=== PATIENT | female | born 1955 | race Caucasian/White ===

== ENCOUNTER 2021-10-11 13:24 | Outpatient (CLI) | payer MEDICARE, OTHER, SELFPAY ==
--- NOTE | ~2021-10-11 | CT_ITS ---
EXAMINATION: CT brain wo/w con DATE: 10/11/2021 14:25 INDICATION: Severe headache TECHNIQUE: Computed tomography (CT) of the head was performed without and subsequently with 100 CC Om nipaque 350 intravenous contrast. The mA was adjusted according to patient size. Iterative reconstruc tion technique was employed. Exam dose: 1210.67 mGy-cm total exam DLP. COMPARISON: None FINDINGS: No intracranial mass lesion or hemorrhage or cerebrovascular accident. No midline shift or mass effect. Normal ventricular size. No subdural or epidural hematoma. There is mild soft tissue thickening as well as some calcification within the sphenoid sinus. There i s minimal posterior mucoperiosteal thickening of the left sphenoid sinus. The included paranasal sinu ses and the mastoid air cells otherwise appear normally developed and aerated. No fracture or bone destruction of the cranial vault. Rounded 7 mm hyperdense lesion within the subcutaneous tissues of the scalp high over the right front al convexity, likely a sebaceous cyst. IMPRESSION: No significant intracranial abnormality Chronic soft tissue thickening and calcification of right sphenoid sinus, minimal mucoperiosteal thic kening of left sphenoid sinus Probable high anterior right frontal scalp sebaceous cyst Reviewed, dictated and finalized at [facility]. Reviewed, dictated and finalized at [facility]. IMPRESSION: No significant intracranial abnormality Chronic soft tissue thickening and calcification of right sphenoid sinus, minim al mucoperiosteal thickening of left sphenoid sinus Probable high anterior right frontal scalp sebaceous cyst
[2021-10-11 14:20] LABS: Estimated Glomerular Filt Rate > 60
== END 2021-10-11 13:25 | disposition home or self-care (01) ==
PROVIDERS: PCP Internal Medicine Gastroenterology; Visit Provider Internal Medicine Gastroenterology
DX: R51.9 Headache, unspecified (principal)
CPT/HCPCS: 70470; Q9967

== ENCOUNTER 2021-12-14 09:59 | Outpatient (CLI) | payer MEDICARE, OTHER, SELFPAY ==
[2021-12-14 10:31] LABS: Basophils Percent Auto 0.6 % (0.2-1.2); Eosinophils Absolute Auto 0.1 K/mm3 (0-0.3); Eosinophils Percent Auto 1.7 % (0-4.4); Hematocrit 40.6 % (37.0-47.0); Hemoglobin 14.1 g/dL (12.0-15.0); Immature Granulocyte Absolute 0.02 K/mm3 (0.00-0.031); Immature Granulocyte Percent A 0.4 % (0-0.5); Lymphocytes Absolute Auto 2.07 K/mm3 (0.9-3.2); Lymphocytes Percent Auto 39.5 % (18.3-44.2); Mean Corpuscular HGB Conc 34.7 g/dl (32-36); Mean Corpuscular Hemoglobin 32.4 pg (26-34); Mean Corpuscular Volume 93.3 fl (80-100); Mean Platelet Volume 9.9 fl (7.4-10.4); Monocytes Absolute Auto 0.5 K/mm3 (0.1-0.6); Monocytes Percent Auto 9.9 % (2.6-8.5); Neutrophils Absolute Auto 2.5 K/mm3 (1.3-6.7); Neutrophils Percent Auto 47.9 % (45.5-73.1); Platelet Count Result 205 k/mm3 (150-375); Red Blood Count 4.35 M/mm3 (4.2-5.4); Red Cell Distribution Width 12.2 % (11.5-14.5); White Blood Count 5.2 K/mm3 (4.5-10.0)
[2021-12-14 11:05] LABS: Alanine Aminotransferase 29 U/L (6-35); Albumin Level 4.9 g/dL (3.5-5.1); Alkaline Phosphatase 49 U/L (38-126); Anion Gap 14 mmol/L (8-16); Aspartate Amino Transferase 27 U/L (14-36); Bilirubin,Total 0.3 mg/dL (0.2-1.3); Blood Urea Nitrogen 11 mg/dL (7-17); Calcium 9.4 mg/dL (8.4-10.2); Carbon Dioxide 26 mmol/L (22-30); Chloride 103 mmol/L (98-107); Estimated Glomerular Filt Rate > 60; Glucose 101 mg/dL (65-110); Potassium 4.2 mmol/L (3.4-5.0); Sodium 143 mmol/L (137-145)
[2021-12-14 13:39] LABS: T4 Thyroxine 7.03 ug/dL (5.53-11.0)
== END 2021-12-14 10:00 | disposition home or self-care (01) ==
LOC: ANHLAB 10:03
PROVIDERS: PCP Internal Medicine Gastroenterology; Visit Provider Psychiatry & Neurology Neurology
DX: E03.9 Hypothyroidism, unspecified (principal); R51.9 Headache, unspecified
CPT/HCPCS: 36415; 80053; 84436; 84443; 85025

== ENCOUNTER 2021-12-28 16:31 | Outpatient (CLI) | payer MEDICARE, OTHER, SELFPAY ==
--- NOTE | ~2021-12-28 | MR_ITS ---
EXAMINATION: MR brain/brain stem wo con DATE: 12/28/2021 17:32 INDICATION: Migraine headache. TECHNIQUE: Magnetic resonance imaging (MRI) of the brain and brainstem was performed without intraven ous contrast. COMPARISON: Head CT 10/11/2021 FINDINGS: There are scattered areas of nonspecific increased T2-weighted signal intensity in the cere bral white matter, which is within normal limits for the patient's age. There is no intracranial hemo rrhage, acute infarction, or abnormal intracranial mass lesion. The ventricles are normal in size. Th ere is mucosal thickening in the paranasal sinuses. The CT demonstrates thickening and sclerosis of t he fitch of sphenoid sinus, consistent with chronic sinusitis. The orbits are normal. The mastoid air cells are normal. IMPRESSION: 1. Normal aging brain. 2. Chronic sinusitis. Reviewed, dictated and finalized at [facility]. [employer]
== END 2021-12-28 16:32 | disposition home or self-care (01) ==
PROVIDERS: PCP Internal Medicine Gastroenterology; Visit Provider Psychiatry & Neurology Neurology
DX: G43.909 Migraine, unspecified, not intractable, without status migrainosus (principal); J32.8 Other chronic sinusitis
CPT/HCPCS: 70551

== ENCOUNTER 2022-01-22 09:13 | Outpatient (CLI) | payer MEDICARE, OTHER, SELFPAY ==
[2022-01-22 10:48] LABS: Glucose Fasting 100 mg/dL
[2022-01-22 13:31] LABS: Glucose 2 Hour 124 mg/dL
== END 2022-01-22 09:14 | disposition home or self-care (01) ==
PROVIDERS: PCP Internal Medicine Gastroenterology; Visit Provider Internal Medicine Gastroenterology
DX: R73.9 Hyperglycemia, unspecified (principal); R51.9 Headache, unspecified
CPT/HCPCS: 36415; 82951

== ENCOUNTER 2022-11-07 07:00 | Outpatient (NON) | payer MEDICARE, OTHER, SELFPAY | END 2022-11-07 07:01 | disposition home or self-care (01) | LOC: ANHLAB 11-08 09:52 | PROVIDERS: PCP Internal Medicine Gastroenterology; Visit Provider Nurse Practitioner | DX: L72.0 Epidermal cyst (principal) | CPT/HCPCS: 88304 ==

== ENCOUNTER 2024-01-12 11:17 | Outpatient (CLI) | payer MEDICARE, OTHER, SELFPAY ==
--- NOTE | 2024-01-12 11:31 | ECG_ITS ---
Test Date: 2024-01-12 11:36:59 Measurements Intervals [place] Rate: 62 P: 12 [place]: 160 QRS: -9 QRSD: 90 T: 0 QT: 401 QTc: 408 Interpretive Statements SINUS RHYTHM LOW QRS VOLTAGE IN PRECORDIAL LEADS [QRS DEFLECTION < 1.0 mV IN CHEST LEADS] POSSIBLE ANTERIOR MYOCARDIAL INFARCTION [30 ms Q WAVE IN V3/V4, OR R < 0.2 mV IN V4], OF INDETERMINATE AGE No previous ECG available for comparison Electronically Signed On 01-12-2024 14:29:08 RN SUPPORT SERVICES by Mckay Rios M.D.
[2024-01-12 12:10] LABS: Anion Gap 7 mmol/L (4-12); Blood Urea Nitrogen 14 mg/dL (7-17); Calcium 9.1 mg/dL (8.4-10.2); Carbon Dioxide 27 mmol/L (22-30); Chloride 106 mmol/L (98-107); Estimated Glomerular Filt Rate > 60; Glucose 96 mg/dL (65-110); Potassium 3.9 mmol/L (3.4-5.0); Sodium 140 mmol/L (137-145)
== END 2024-01-12 11:18 | disposition home or self-care (01) ==
PROVIDERS: Anesthesiology; PCP Internal Medicine Gastroenterology; Visit Provider Surgery
DX: Z01.818 Encounter for other preprocedural examination (principal); I10 Essential (primary) hypertension; Z79.899 Other long term (current) drug therapy
CPT/HCPCS: 36415; 80048; 93005

== ENCOUNTER 2024-01-13 00:09 | Day surgery (SDC) | payer MEDICARE, OTHER, SELFPAY ==
[2024-01-07 11:54] VITALS: BMI 32.2
--- NOTE | 2024-01-07 12:14 | PC.NURSE ---
Report to the Outpatient Waiting Room, entrance under the green pavilion located off [facility], at time __06:00am on date ____01/13/24 ___. Planned Procedure Time: __07:30am .? Time changes happen often and if your time is changed the preop area will call you the afternoon before. - You and your visitor will be asked to self-screen and do not enter if you have any COVID symptoms. Please call surgeon if you need to reschedule. - A mask is optional within the hospital at this time. Patients - No food or drink from midnight until time of surgery and no smoking. This includes no chewing gum, candy or mints. Take only the following medications with a SIP of water on the morning of surgery: __Carvedilol (Coreg) and Tylenol if needed DO NOT STOP ANY OF YOUR OTHER PRESCRIPTION MEDICATIONS PRIOR TO SURGERY EXCEPT THE FOLLOWING Medications to discontinue per physician ____Vitamins and supplements for 3 days prior per Anesthesia Date to take last dose 01/09/24 Please no make-up, nail luxembourgish, hairspray, perfume, deodorant, or body powder the day of surgery.? No jewelry (including any body piercings) or valuables the day of surgery, leave them at home.? Please take a shower or bath the night before, or the morning of, surgery with an antibacterial soap.? Wear comfortable, loose fitting clothing. - Jewelry must be removed prior to entering the operating room.? Rings and piercings that are not removed may be cut off. - The hospital will not accept responsibility for valuables.? - Please leave all valuables, including medications, at home the day of surgery. If you are going home after surgery, a licensed steam train driver must drive you home.? - NO public transportation without another adult if you receive anesthesia. - We recommend that an adult stay with you for 24 hours following discharge. - We also recommend that you do not drive, make important decision, drink alcoholic beverages, or take any drugs that were not prescribed by your health care provider for at least 24 hours after your discharge time. Follow any additional instructions given to you from your surgeon. Telephone instructions given to __Patient and asked if any additional questions and then verbalized understanding. Patient advised to call surgeon office or pre surgery nurse liaison [phone] if any additional questions.
[2024-01-13] VITALS (12 sets, daily range): BP systolic 112–149; BP diastolic 65–87; PULSE 58–74; RESP 12–14; TEMP 36.5–36.6; O2SAT 94–100
[2024-01-13] MEDS: LACTATED RINGERS 1,000 ML 30 ML IV CONT (06:30)
[2024-01-13] MEDS: ACETAMINOPHEN 500 MG TABLET 1000 MG PO (06:30)
[2024-01-13] MEDS: KETOROLAC 15 MG/ML VIAL (*BKC) IV PUSH (06:30)
--- NOTE | 2024-01-13 07:01 | P.PNAN_ITS ---
Anes - Initial Pre Proc Eval Procedure: Operation Date: 01/13/24 07:30 Proposed Procedures p Rectal Examination Under Anesthesia, Excision Thrombosed Hemorrhoid - Sarah Wayne MD Date/Time: 01/13/24 07:01 Surgeon: Sarah Wayne MD Pre Op Diagnosis: Thrombosed Hemorrhoids Patient Data Age: 68 Gender: F Height: 1.75 m Weight: 100.5 kg Last Vital Signs Temp 97.7 F 01/13/24 06:30 Pulse 73 01/13/24 06:30 Resp 14 01/13/24 06:30 BP 149/87 H 01/13/24 06:30 Pulse Ox 99 01/13/24 06:30 O2 Del Method Room Air 01/13/24 06:30 Allergies Allergy/AdvReac Type Severity Reaction Status Date / Time No Known Allergies Allergy Verified 01/13/24 07:00 Home Medications Medication Instructions Recorded Confirmed Type acetaminophen 500 mg tablet 1,000 mg PO DAILY PRN Pain 01/07/24 01/07/24 History amlodipine 10 mg tablet 10 mg PO HS 01/07/24 01/07/24 History carvedilol 3.125 mg tablet 3.125 mg PO Q12H 01/07/24 01/13/24 History hydrochlorothiazide 25 mg tablet 25 mg PO .Every other day 01/07/24 01/07/24 History hydrocortisone 2.5 % topical cream 1 applic RECTAL DAILY PRN 01/07/24 Rx with perineal applicator hemorrhoids #30 grams (Anusol-HC) magnesium aspart,citrate,oxide 400 mg PO BID 01/07/24 01/07/24 History Patient hx anesthesia problems: none Family hx anesthesia problems: none Results Review: All pre-operative results and documents have been reviewed as part of the pre- operative evaluation. FOR[facility] Past Medical History Medical History Congestive heart failure Hypertension Surgical History Surgical History (Updated 01/07/24 @ 10:04 by Terrie Cain MA) Hx of laparoscopic gastric banding Family History Family History Mother Cancer Sibling Cancer Grandparent Cancer Other Carcinoma of colon Family history of lung cancer Social History Social History Smoking status: Never smoker Alcohol intake: never Substance use: never Do You Feel Safe in your Home?: Yes Lack of Transportation: No Lack of Food: Never True Current Housing: I Have Housing Concerned About Future Housing: No Difficulty Paying Gas/Electric Bills: No Difficulty Paying for Meds: No Currently Unemployed: No Education: Associate Degree Difficulty w/ Childcare or Family Care: No Living arrangements: alone Spiritual care concerns: No Anes - Eval Final PreProcedure Day of Procedure 01/13/24 07:01 Patient weight: obese Heart: regular rate and rhythm Lungs: clear to auscultation Airway: Mallampati scale class III Neurological: alert and oriented Last oral intake: >/= 8 hours ASA classification: II Emergent: no Anesthetic plan: proceed Anesthesia type and monitoring: general ETT and standard monitoring Results Review: All pre-operative results and documents have been reviewed as part of the pre- operative evaluation. HTN, pt denies CISCO. Informed Consent: The patient's anesthetic plan and its attendant risks and benefits were discussed with the patient/family/POA. Questions were solicited and answers provided to the satisfaction of the patient/family/POA.
--- NOTE | 2024-01-13 07:19 | WPDHPUPDATE1 ---
History and Physical Update Update Date/Time: 01/13/24 07:19 History and Physical has been reviewed, including an updated exam of the patient. There are NO changes in the patient's condition. Risks, benefits, and alternatives have been discussed and questions answered. Patient agrees to proceed with procedure.
[2024-01-13] MEDS: ceFAZolin 2 GM/D5W 50 ML 2 GM/50 ML BAG IVPB (07:35)
[2024-01-13] MEDS: LIDOCAINE HCL 2% GEL UROJET 10 ML PKG MUCOUS MEM (07:59)
[2024-01-13] MEDS: BUPIVACAINE/EPINEPHRINE 0.5% 30 ML VIAL INFILTRATE (08:01)
--- NOTE | 2024-01-13 08:27 | W.PM.PROC2 ---
Procedure Note - Detailed Date of Procedure 01/13/24 Pre-op Diagnosis Thrombosed Hemorrhoids Post-op Diagnosis Other (anal mass) Procedure Performed Rectal exam under anesthesia, excisional biopsy rectal mass Surgeon Sarah Wayne MD Anesthesia General and Local Indications 68-year-old female presenting with painful mass in the anal canal. Findings Friable, indurated anal mass x2 Description of Procedure The patient was taken to the operating room and placed position. After adequate induction of general anesthesia and draped in the normal sterile fashion. A time-out was then as well as the procedure being performed. I began by performing a bilateral pudendal nerve block, as well as perianal localization. I then did a digital rectal exam. The patient was noted to have some non inflamed external hemorrhoids. At the 5 o'clock position, the patient had friable, indurated anal mass x2. I then used the [place] retractor to examine these masses further. This was noted to come from the anoderm. Given these finding, I excised these masses in full using the hand-held LigaSure device. Once excised, these masses were sent to pathology for further review. Hemostasis was then gained with the Bovie cautery. No other pathology was noted within the anal canal or the rectum. I then placed a piece of Gelfoam covered in lidocaine jelly into the rectal vault. Sterile dressing was then placed. The patient tolerated the procedure and was extubated postoperatively. She will be sent to the recovery room in stable condition. Implants Gelfoam covered in lidocaine jelly in the rectal vault Estimated Blood Loss 10 Drains No Packing Yes Pathology Yes Complications No immediate complications Condition Stable Disposition PACU [facility] Billing Surgery - Charge Forward: Surgery Billing
== END 2024-01-13 10:48 | disposition home or self-care (01) ==
PROVIDERS: PCP Internal Medicine Gastroenterology; Visit Provider Surgery
PROC: (CPT 45100; principal; 2024-01-13 07:30)
DX: C21.1 Malignant neoplasm of anal canal (principal); I11.0 Hypertensive heart disease with heart failure; I50.9 Heart failure, unspecified; E66.9 Obesity, unspecified; Z68.32 Body mass index [BMI] 32.0-32.9, adult; Z98.890 Other specified postprocedural states; Z80.0 Family history of malignant neoplasm of digestive organs; Z80.1 Family history of malignant neoplasm of trachea, bronchus and lung
CPT/HCPCS: 45100; 88304; A9270; J0690; J1100; J1885; J2003; J2250; J2405; J2704; J3010; J7120

== ENCOUNTER 2024-10-05 00:27 | Day surgery (SDC) | payer MEDICARE, OTHER, SELFPAY ==
[2024-09-24 09:22] VITALS: BMI 31.8
--- OUTSIDE RECORDS SUMMARY | 2024-10-05 00:32 | XMS_ITS | Clinical Summary ---
Author Organization [facility] [employer] Address [address] [place] [address] Care Team Providers Care Network Services Project Manager Name Role Phone Orlando Cope MD Unavailable [phone] Dileep Vanessa DO Unavailable [phone] Juan Daniel Devine MD Primary Care Provide r Allergies No known active allergies Medications carvediloL (COREG) 3.125 mg tablet carvedilol 3.125 mg tablet 024 Active magnesium oxide (MAG-OX) 400 mg (241.3 mg elemental magnesium) tablet Take 1 tablet (400 mg total) by mouth 2 (two) times a day Active nitroglycerin (Nitrostat) 0.4 mg SL tablet [address] (PROTONIX) 40 mg EC tabletIndicatio ns:Anal cancer (HCC) Take 1 tablet (40 mg total) by mouth daily while on chemotherapy treatment 30 tablet 2 025 Active silver sulfadiazine (SILVADENE, SSD) 1 % cream Apply topically 3 (three) times a day 50 g 025 Active vitamin b complex tablet Take 1 tablet by mouth daily Active traMADoL (ULTRAM) 50 mg tablet Take 1 tablet (50 mg total) by mouth every 6 (six) hours as needed for pain 60 tablet 025 Active amLODIPine (NORVASC) 10 mg tablet 025 Active hydroCHLOROthia zide (HYDRODIURIL) 25 mg tablet hydrochlorothiazide 25 mg tablet 024 Active Active Problems Problem Noted Date Diagnosed Date Personal history of radiation therapy 06/02/2024 Malignant neoplasm of colon 02/16/2024 Anal cancer 02/16/2024 Cancer Staging:Clinical stage from 02/18/2024:Stage IIA(cT2, cN0, cM0) - Signed by Orlando Cope MD on 02/18/2024 Posterior vitreous detachment of left eye 2020 Assessment & Plan (01/12/2021 5:16 PM PSYCHIATRIC NP): No retinal breaks tear or detachment. Reassured patient. Age-related nuclear cataract 01/12/2021 Assessment & Plan (01/12/2021 5:18 PM PSYCHIATRIC NP): Pt was educated on the diagnosis. Encounters Date Type Department Care Team Description 07/21/2024 Telephone [facility] [address] [place] [phone] Josette Narayan CMA 07/15/2024 Orders Only [facility] [address] [place] [phone] Eobny Morin RN Anal cancer (HCC) (Primary Dx); Malignant neoplasm of rectum (HCC) 07/07/2024 11:45 AM CDT Office Visit [facility] [address] [place] [phone] Dileep Vanessa, Anal cancer (HCC) 07/07/2024 11:15 AM CDT Lab [facility] at [address] [id number] Anal cancer (HCC) from Last 3 Months Surgical History Surgery Date Site/Laterality Comments TUBAL LIGATION 02/10/1985 - 02/09/1986 BARIATRIC SURGERY 02/10/2003 - 02/10/2004 HEMORROIDECTOMY 01/17/2024 Medical History Medical History Date Comments Congestive heart failure (CHF) (HCC) Hypertension Fatty liver disease, nonalcoholic Cancer (HCC) Family History Medical History Relation Name Comments Non-Hodgkin's Lymphoma Brother 1 Lung cancer Brother 2 Lung cancer Brother 3 GI problems Father Diabetes Maternal Grandmother Cancer Mother Diabetes Mother Hypertension Mother Lung cancer Sister 1 Leukemia Sister 2 Breast cancer Sister 3 Relation Name Status Comments Brother 1 Brother 2 Brother 3 Father Maternal Grandfather Maternal Grandmother Mother Paternal Grandfather Paternal Grandmother Sister 1 Sister 2 Sister 3 Social History Tobacco Use Types Packs/Day Years Used Date Smoking Tobacco: Never Tobacco Cessation:Counseling Given: Not Answered AUDIT-C Answer Date Recorded Q1: How often do you have a drink containing alcohol? Never 03/18/2024 Q2: How many drinks containi ng alcohol do you have on a typical day when you are drinking? Patient does not drink Q3: How often do you have si x or more drinks on one occasion? Never 03/18/2024 Comments Unknown Sex and Gender Information Value Date Recorded Sex Assigned at Not on file Legal Sex Female 12:26 PM PSYCHIATRIC NP Gender Identity Not on file Sexual Orientation Not on file Occupation Industry Job Start Date Job End Date RN Not on file Not on file Not on file Obstetrics History Last Filed Vital Signs Vital Sign Reading Time Taken Comments Blood Pressure 118/81 07/07/2024 11:40 AM CDT Pulse 73 07/07/2024 11:40 AM CDT Temperature 36.7 C (98.1 F) 07/07/2024 11:40 AM CDT Respiratory Rate 18 07/07/2024 11:4 0 AM CDT Oxygen Saturation 97% 07/07/2024 11: 40 AM CDT Inhaled Oxygen Concentration - - Weight 98.5 kg (217 lb 3.2 oz) 07/08/19 11:40 AM CDT no shoes Height 172.5 cm (5' 7.91) 03/11/2024 1 0:51 AM PSYCHIATRIC NP w/o shoes Body Mass Index 33.11 03/11/2024 10:51 AM PSYCHIATRIC NP Plan of Treatment Health Maintenance Due Date Last Done Comments Breast Cancer Screening-Mammogram 1955 Colon Cancer Screening-Colonoscopy 1955 Depression Screening 1955 Hepatitis C Screening 1955 DTaP/Tdap/Td Vaccine (1 - Tdap) 09/01/1967 Hepatitis B Screening 1974 Pneumococcal vaccine 65+ (1 of 2 - PCV) 09/01/1975 Zoster Vaccine (1 of 2) 09/01/1975 Well Visit 65+ 2021 Influenza Vaccine (#1) 2024 Fall Risk Assessment 02/17/2025 02/18/2024 Osteoporosis Screening-Bone Density Scan 06/15/2026 06/15/2024 Procedures Procedure Name Priority Date/Time Associated Diagnosis Comments EGFR Routine 07/07/2024 11:19 AM CDT Anal cancer (HCC) DIFFERENTIAL AUTO Routine 07/07/2024 11: 19 AM CDT Anal cancer (HCC) COMPREHENSIVE METABOLIC PANEL Routine 07/07/2024 11:19 AM CDT Anal cancer (HCC) CBC WITH AUTO DIFFERENTIAL Routine 07/07/2024 11:19 AM CDT Anal cancer (HCC) from Last 3 Months Results * eGFR (07/07/2024 11:19 AM CDT) eGFR 81 >=60 mL/min/1. 73 m2 Comment: Interpretive Data Reference Interval Normal >/= 90 mL/min/1.73m2 Mildly decreased* 60 - 89 mL/min/1.73m2 Mildly to moderately decreased 45 - 59 mL/min/1.73m2 Moderately to severely decreased 30 - 44 mL/min/1.73m2 Severely decreased 15 - 29 mL/min/1.73m2 Kidney Failure < 15 mL/min/1.73m2 *Relative to young adult level Estimated glomerular filtration rate is determined by the 2020 CKD-EPI equation recommended by the National Kidney Foundation (A Unifying Approach to GFR Estimation: Recommendations of the NKF-ASK Task Force on Reassessing the Inclusion of Race in Diagnosing Kidney Disease, JASN 2020). The CKD-EPI equation should not be used for patients with unstable renal function and has not been validated in children and those over 70. Current interpretive data was last reviewed 2020. Testing performed by: [facility], [address] [place] [address], [place]., [address] Blood 07/07/2024 11:1 9 AM CDT 07/07/2024 11:22 AM CDT Dileep Vanessa DO LAB BLOOD ORDERABLES Final R esult PEG [address] [facility] [place] [address] * (ABNORMAL) Differential, auto (07/07/2024 11:19 AM CDT) Neutrophil abs 2.21 1.50 - 6.50 K/cumm Comment:Testing performed by : [address] [address] Imm gran abs 0.03 0.00 - 0.10 K/cumm PEG Comment:Testing performed by : [address] [address] Lymphocyte abs 0.64(L) 0.80 - 3.30 K/cumm PEG Comment:Testing performed by : [address] [address] Monocyte abs 0.45 0.20 - 0.80 K/cumm PEG Comment:Testing performed by : [address] [address] Eosinophil abs 0.05 0.00 - 0.50 K/cumm PEG Comment:Testing performed by : [address] [address] Basophil abs 0.02 0.00 - 0.10 K/cumm PEG Comment:Testing performed by : [address] [address] Neutrophil pct 65.0 % PEG Comment: Interpretive Data Percent cell count reference ranges are not reported, since discordance with absolute values may lead to misinterpretation of CBC data. Current Interpretive Data was last revised on 2017. Testing performed by: [address] [address] Imm gran pct 0.9 % PEG Comment: Interpretive Data Percent cell count reference ranges are not reported, since discordance with absolute values may lead to misinterpretation of CBC data. Current Interpretive Data was last revised on 2017. Testing performed by: [address] [address] Lymphocyte pct 18.8 % [facility] Comment: Interpretive Data Percent cell count reference ranges are not reported, since discordance with absolute values may lead to misinterpretation of CBC data. Current Interpretive Data was last revised on 2017. Testing performed by: [address] [address] Monocyte pct 13.2 % [facility] Comment: Interpretive Data Percent cell count reference ranges are not reported, since discordance with absolute values may lead to misinterpretation of CBC data. Current Interpretive Data was last revised on 2017. Testing performed by: [address] [address] Eosinophil pct 1.5 % [facility] Comment: Interpretive Data Percent cell count reference ranges are not reported, since discordance with absolute values may lead to misinterpretation of CBC data. Current Interpretive Data was last revised on 2017. Testing performed by: [address] [address] Basophil pct 0.6 % [facility] Comment: Interpretive Data Percent cell count reference ranges are not reported, since discordance with absolute values may lead to misinterpretation of CBC data. Current Interpretive Data was last revised on 2017. Testing performed by: [address] [address] Blood 07/07/2024 11:1 9 AM CDT 07/07/2024 11:22 AM CDT us Dileep Vanessa DO LAB BLOOD ORDERABLES Final R esult PEG TORREZ [address] [facility] [place] [address] * (ABNORMAL) CBC with auto differential (07/07/2024 11:19 AM CDT) WBC 3.40(L) 3.80 - 9.90 K/cumm Comment:Testing performed by : [address] [address] Hgb 11.8(L) 11.9 - 15.5 g/dL PEG Comment:Testing performed by : [address] [address] Hct 33.7(L) 35.6 - 45.5 % [facility] Comment:Testing performed by : [address] [address] Plt 158 150 - 400 K/cumm [facility] Comment:Testing performed by : [address] [address] MPV 9.4 9.1 - 12.3 fL [facility] Comment:Testing performed by : [address] [address] RBC 3.46(L) 3.90 - 5.20 M/cumm [facility] Comment:Testing performed by : [address] [address] MCV 97.4(H) 81.3 - 96.4 fL [facility] Comment:Testing performed by : [address] [address] MCH 34.1(H) 27.1 - 33.3 pg [facility] Comment:Testing performed by : [address] [address] MCHC 35.0 32.3 - 35.7 g/dL [facility] Comment:Testing performed by : [address] [address] RDW CV 12.4 11.1 - 14.9 % [facility] Comment:Testing performed by : [address] [address] RDW SD 43.8 35.7 - 48.1 fL [facility] Comment:Testing performed by : [address] [address] NRBC abs 0.00 0.00 - 0.01 K/cumm PEG Comment:Testing performed by : [address] [address] ANC Prelim 2.21 1.50 - 6.50 K/cumm PEG Comment: Interpretive Data The rapid ANC is a preliminary automated count and may vary from the final ANC (Neut Abs) reported in the WBC differential that follows. Current interpretive data was last revised 2024. Testing performed by: [address] [address] Blood 07/07/2024 11:1 9 AM CDT 07/07/2024 11:22 AM CDT us Dileep Vanessa DO LAB BLOOD ORDERABLES Final R esult PEG [address] [facility] [place] [address] * Comprehensive metabolic panel (07/07/2024 11:19 AM CDT) Sodium 140 135 - 145 mmol/L Comment:Testing performed by : [address] [address] Potassium, pl 4.0 3.3 - 4.9 mmol/L PEG Comment:Testing performed by : [address] [address] Chloride 105 97 - 110 mmol/L PEG Comment:Testing performed by : [address] [address] CO2 24 22 - 32 mmol/L PEG Comment:Testing performed by : [address] [address] Anion gap 11 2 - 15 mmol/L PGE Comment:Testing performed by : [address] [address] BUN 18 6 - 25 mg/dL EPG Comment:Testing performed by : [address] [address] Creatinine 0.80 0.60 - 1.10 mg/dL PEG Comment:Testing performed by : [address] [address] Glucose 96 70 - 199 mg/dL PEG Comment: Interpretive Data Fasting glucose >/= 126 mg/dl is diagnostic for diabetes. Fasting is defined as no caloric intake for at least 8 hours. Fasting glucose between 100 mg/dl to 125 mg/dl is diagnostic of prediabetes. In a patient with classic symptoms of hyperglycemia or hyperglycemic crisis, a random glucose >/= 200 mg/dl is diagnostic for diabetes. In the absence of unequivocal hyperglycemia, results should be confirmed by repeat testing. The classification and Diagnosis of Diabetes Diabetes Care 202; 46: S19-S40. Current interpretive data was last revised 2022. Testing performed by: [address] [address] Calcium 9.4 8.5 - 10.3 mg/dL PEG Comment:Testing performed by : [address] [address] Bilirubin, total 0.3 0.1 - 1.2 mg/dL PEG Comment:Testing performed by : [address] [address] Protein, pl 6.8 6.5 - 8.5 g/dL PEG Comment:Testing performed by : [address] [address] Albumin 4.5 3.5 - 5.0 g/dL PEG Comment:Testing performed by : [address] [address] Alk phos 53 40 - 130 Units/L PEG Comment:Testing performed by : [address] [address] ALT 27 7 - 45 Units/L PEG Comment:Testing performed by : [address] [address] AST 26 10 - 45 Units/L PEG Comment:Testing performed by : [address] [address] Blood 07/07/2024 11:1 9 AM CDT 07/07/2024 11:22 AM CDT Dileep Vanessa DO LAB BLOOD ORDERABLES Final R esult [facility] [address] [facility] [place] [address] from Last 3 Months Insurance MEDICARE [employer] [facility]ICARE [facility] Care Teams Network Services Project Manager Relationship Specialty Start Date End Date Juan Daniel Devine MD [address] [address] PCP - General Internal Medicine 07/07/24 Orlando Cope MD [address] [place] [address] Radiation Oncologist Radiation Oncology 02/18/24 Dileep Vanessa DO [address] [place] [address] Medical Oncologist/Errand Runner Hematology and Oncology 02/18/24
--- OUTSIDE RECORDS SUMMARY | 2024-10-05 00:32 | XMS_ITS | Encounter Summary ---
Author Organization [facility] Address [address] [place] [address] Care Team Providers Care Medical Typist Name Role Phone Roxanna Rodriguez MD Primary Care Provider [phone] Encounter Details Date Type Department Care Team (Late st Contact Info) Description 12/18/2011 SS Outpatient Visit EXTERNAL NON-[facility] DEPT Abiodun Carlton MD [address] [place] [id number] Social History Tobacco Use Types Packs/Day Years Used Date Smoking Tobacco: Never Alcohol Use Standard Drinks/Week Comments No 0 (1 standard drink = 0.6 oz pur e alcohol) Comments Unknown Sex and Gender Information Value Date Recorded Sex Assigned at Not on file 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
--- OUTSIDE RECORDS SUMMARY | 2024-10-05 00:32 | XMS_ITS ---
Author Organization 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 Reassured patient. Age-related nuclear cataract 01/12/2021 Assessment & Plan (01/12/2021 5:18 PM CANCER CENTER DIRECTOR): Pt was educated on the diagnosis. Current Treatment and Therapy Plans No current plan information found. Past Treatment and Therapy Plans Line Care Plan Name Start Date Discontinue Date Treatment Medications Discontinue Reason Plan Provider IV Maintenance Therapy Plan 04/08/2024 04/29/2024 No medications scheduled. Therapy Complete Dileep Vanessa DO Oncology Chemotherapy Treatment Plan Name Start Date Discontinue Date Treatment Medications Discontinue Reason Plan Provider Cycles Capecitabine / Mitomycin with Concurrent radiation - 42 Day Cycles 5 04/28/2024 capecitabine (XELODA)dexAMET Hasone (DECADRON)mitoM Ycin (MUTAMYCIN) 0.5 mg/mL Therapy Complete Dileep Vanessa, 1 of 1 cycle started Radiation Treatments (No Episode) * Course [id number]/11/2024 - 04/19/2024 Treatment Period Energy Fraction Dose Fractions Total Dose Plans Planned PELVIS_ANUS 03/11/2024 - 04/19/2024 180 28 / 5,040 Reference Points Delivered [id number] 03/11/2024 - 04/19/2024 5,040 Lifetime Dose Tracking * Chemical Lifetime Dose Automatic Entry Manual Entr y mitomycin 18.352 mg/m2 (40 mg) 18.352 mg/m2 (40 mg) 0 mg/m2 (0 mg)
--- OUTSIDE RECORDS SUMMARY | 2024-10-05 00:32 | XMS_ITS | Clinical Summary ---
Author Organization [facility] [employer] Address [address] [facility] [place] [address] Care Team Providers Care Boarder Machine Name Role Phone Roxanna Rodriguez MD Primary Care Provider [phone] Source Comments [facility] [employer],non-owned Affiliates and Associated Physician Practices is amultiple site organization consisting of ambulatory clinics and hospital sitesin [place], [place], [place] and [place]. This disclosure is being madepursuant to the Care Everywhere program and may not contain all information available regarding this patient. Last updated 17.[facility] [employer] Allergies No known active allergies Medications * Be aware that medications may not be up to date on this document. Alwaysverify current medications with the patient. lisinopril-hydro chlorothiazide (PRINZIDE; ZESTORETIC) 20-25 MG tablet Take 1 Tab by mouth once daily. Active escitalopram (LEXAPRO) 20 MG tablet Take 20 mg by mouth once daily. 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 Gender Identity Not on file Sexual Orientation Not on file Last Filed Vital Signs Vital Sign Reading Time Taken Comments Blood Pressure 102/62 05/30/2011 9:10 AM CDT Pulse 60 05/30/2011 9:10 AM CDT Temperature 36.6 C (97.9 F) 05/30/2011 8:06 AM CDT Respiratory Rate 18 05/30/2011 9:10 AM CDT Oxygen Saturation 99% 05/30/2011 9:01 AM CDT Inhaled Oxygen Concentration - - Weight 94.3 kg (208 lb) 05/30/2011 8:06 AM CDT Height 177.8 cm (5' 10) 05/30/2011 8:06 AM CDT Body Mass Index 29.84 05/30/2011 8:06 AM CDT Plan of Treatment Health Maintenance Due Date Last Done Comments BONE DENSITY TESTING 1955 COLOGUARD (AGES 45-75) - COL ON CA SCREENING 1956 CT COLONOGRAPHY - COLON CA SCREENING 1955 FIT - COLON CA SCREENING 1956 FLEX SIG - COLON CA SCREENING 1956 LIPID TESTING 1955 MAMMOGRAM 1955 MEDICARE AWV 12 MONTHS 1955 HEPATITIS C SCREENING 08/27/1974 DTAP/TDAP/TD VACCINES (1 - Tdap) 09/01/1975 PNEUMOCOCCAL VACCINE 50+ (1 of 1 - PCV) 2006 ZOSTER VACCINE (1 of 2) 2006 COLON MONITORING 05/29/2021 05/30/2011 COLONOSCOPY - COLON CA SCREENING 05/29/2021 05/30/19 12 Colorectal Cancer Screening 05/29/2021 COVID-19 VACCINE (1 - 2023-2 5 season) 2023 DEPRESSION SCREENING 02/11/2024 INFLUENZA VACCINE (#1) 2024 Respiratory Syncytial Virus (RSV) Vaccine Pt: or over 60 yrs (1 - 1-dose 75+ series) 09/01/2031 HEPATITIS B VACCINE Aged Out No longe r eligible based on patient's age to complete this topic HIB VACCINE Aged Out No longer eligi ble based on patient's age to complete this topic HPV VACCINE Aged Out No longer eligi ble based on patient's age to complete this topic MENINGOCOCCAL (Group B) VACC INE SHARED DECISION-MAKING Aged Out No longer eligibl e based on patient's age to complete this topic MENINGOCOCCAL GROUPS A/C/Y/W VACCINE Aged Out No longer eligible b ased on patient's age to complete this topic Procedures Procedure Name Priority Date/Time Associated Diagnosis Comments ENDOSCOPY, COLON, SCREENING Routine 05/30/2011 11:33 AM CDT from Last 3 Months or Most Recently Relevant to Health Maintenance Results * ENDOSCOPY, COLON, SCREENING (05/30/2011 11:33 AM CDT) Narrative Transcriptions Roxanna Rodriguez MD - 05/30/2011 11:33 AM CDT Roxanna Rodriguez MD GI PROCEDURE ORDERABLES Fi nal Result [facility] [place] [address] from Last 3 Months or Most Recently Relevant to Health Maintenance Insurance SELF PAY NO INSURANCE Member Subscriber Plan / Payer (Ef fective for All Dates) Name:Gurjit Luis V Member ID:Not on file Relation to Subscriber:Self Name:GURJIT LIUS Caterina Subscriber ID:Not on file Payer ID:Not on file Group ID:Not on file Type:Self Pay Address: [place], [place] MEDICARE [facility] MEDICARE Care Teams Boarder Machine Relationship Specialty Start Date End Date Roxanna Rodriguez MD [address] [place] [id number] PCP - General 05/27/11
[2024-10-05 08:24] VITALS: BP 161/90; PULSE 79; RESP 16; TEMP 36.6; O2SAT 100; BMI 31.6
--- NOTE | 2024-10-05 08:25 | P.PNAN_ITS ---
Anes - Initial Pre Proc Eval Procedure: Operation Date: 10/05/24 09:30 Proposed Procedures p Diagnostic Colonoscopy - Ronnie Darnell MD Date/Time: 10/05/24 08:25 Surgeon: Ronnie Darnell MD Pre Op Diagnosis: Malignant neoplasm of anus, abdominal pain Patient Data Age: 69 Gender: F Height: 1.75 m Weight: 97.1 kg Last Vital Signs Temp 36.6 C 10/05/24 08:24 Pulse 79 10/05/24 08:24 Resp 16 10/05/24 08:24 BP 161/90 H 10/05/24 08:24 Pulse Ox 100 10/05/24 08:24 O2 Del Method Room Air 10/05/24 08:24 Allergies Allergy/AdvReac Type Severity Reaction Status Date / Time No Known Allergies Allergy Verified 10/05/24 08:22 Home Medications ?Medication ?Instructions ?Recorded ?Confirmed ?Type acetaminophen 500 mg tablet 1,000 mg PO DAILY PRN Pain 01/07/24 09/24/24 History carvedilol 3.125 mg tablet 3.125 mg PO Q12H 01/07/24 0 10/05/24 History hydrocortisone 2.5 % topical cream 1 applic RECTAL CLEVE LY PRN 01/07/24 09/24/24 Rx with perineal applicator hemorrhoids #30 grams (Anusol-HC) magnesium aspart,citrate,oxide 400 mg PO BID 01/07/24 10/05/24 History tramadol 50 mg tablet 50 mg PO Q6H PRN pain 09/24/24 History ergocalciferol (vitamin D2) 1,250 1,250 mcg PO DAILY 0 09/24/24 10/05/24 History mcg (50,000 unit) capsule (Vitamin D2) turmeric 400 mg capsule See Rx Instructions PO HS 10/05/24 History Patient hx anesthesia problems: none Family hx anesthesia problems: none Results Review: All pre-operative results and documents have been reviewed as part of the pre- operative evaluation. [facility] Past Medical History Medical History (Updated 10/05/24 @ 08:40 by William Greenberg DO) History of rectal cancer 02/2024 chemo/radiation Hypertension Congestive heart failure diastolic Surgical History Surgical History (Updated 10/05/24 @ 08:25 by William Greenberg DO) History of adjustable gastric banding H/O hemorrhoidectomy 01/13/24 Rectal exam under anesthesia, excisional biopsy rectal mass Dr. Tone Duncan of laparoscopic gastric banding Family History Family History Mother Cancer Sibling Cancer Grandparent Cancer Other Carcinoma of colon Family history of lung cancer Social History Social History Smoking status: Never smoker Alcohol intake: never Substance use: never Substance use type: does not use Do You Feel Safe in your Home?: Yes Lack of Transportation: No Lack of Food: Never True Current Housing: I Have Housing Concerned About Future Housing: No Difficulty Paying Gas/Electric Bills: No Difficulty Paying for Meds: No Currently Unemployed: No Education: Associate Degree Difficulty w/ Childcare or Family Care: No Living arrangements: alone Spiritual care concerns: No Anes - Eval Final PreProcedure Day of Procedure 10/05/24 08:25 Patient weight: obese Heart: regular rate and rhythm Lungs: clear to auscultation Airway: Mallampati scale class II Neurological: alert and oriented Last oral intake: >/= 8 hours ASA classification: III Emergent: no Anesthetic plan: proceed Anesthesia type and monitoring: general GIVS and standard monitoring Results Review: All pre-operative results and documents have been reviewed as part of the pre- operative evaluation. Informed Consent: The patient's anesthetic plan and its attendant risks and benefits were discussed with the patient/family/POA. Questions were solicited and answers provided to the satisfaction of the patient/family/POA.
[2024-10-05] MEDS: LACTATED RINGERS 1,000 ML 150 ML IV CONT (08:33)
--- NOTE | 2024-10-05 09:35 | PM.IMHP ---
H&P: HPI History of Present Illness Date/Time: 10/05/24 09:35 Chief Complaint: History of colon polyps-history of anal cancer Narrative: The patient has a history of colonic polyps, the last colonoscopy was 5 years ago. In April this year, she was diagnosed with squamous cell carcinoma of the anus, undergoing chemotherapy and radiation. Review of Systems Review of Systems: All systems reviewed & are unremarkable except as noted in HPI and below PMFSH Past Medical History Medical History (Updated 10/05/24 @ 09:36 by Ronnie Darnell MD) History of rectal cancer 02/2024 chemo/radiation Hypertension Congestive heart failure diastolic Surgical History Surgical History (Updated 10/05/24 @ 08:25 by William Greenberg DO) History of adjustable gastric banding H/O hemorrhoidectomy 01/13/24 Rectal exam under anesthesia, excisional biopsy rectal mass Dr. Tone Duncan of laparoscopic gastric banding Family History Family History Mother Cancer Sibling Cancer Grandparent Cancer Other Carcinoma of colon Family history of lung cancer Social History Social History Smoking status: Never smoker Alcohol intake: never Substance use: never Substance use type: does not use Do You Feel Safe in your Home?: Yes Lack of Transportation: No Lack of Food: Never True Current Housing: I Have Housing Concerned About Future Housing: No Difficulty Paying Gas/Electric Bills: No Difficulty Paying for Meds: No Currently Unemployed: No Education: Associate Degree Difficulty w/ Childcare or Family Care: No Living arrangements: alone Spiritual care concerns: No Meds Home Medications and Allergies Home Medications ?Medication ?Instructions ?Recorded ?Confirmed ?Type acetaminophen 500 mg tablet 1,000 mg PO DAILY PRN Pain 01/07/24 09/24/24 History carvedilol 3.125 mg tablet 3.125 mg PO Q12H 01/07/24 10/05/24 History hydrocortisone 2.5 % topical cream 1 applic RECTAL DAILY PRN 01/07/24 09/24/24 Rx with perineal applicator hemorrhoids #30 grams (Anusol-HC) magnesium aspart,citrate,oxide 400 mg PO BID 01/07/24 10/05/24 History tramadol 50 mg tablet 50 mg PO Q6H PRN pain 07/28/24 09/24/24 History ergocalciferol (vitamin D2) 1,250 1,250 mcg PO DAILY 09/24/24 10/05/24 History mcg (50,000 unit) capsule (Vitamin D2) turmeric 400 mg capsule See Rx Instructions PO HS 09/24/24 10/05/24 History Allergies Allergy/AdvReac Type Severity Reaction Status Date / Time No Known Allergies Allergy Verified 10/05/24 08:22 Vital Signs Vital Signs - 24 hr 10/05/24 08:24 Temperature 97.8 F Pulse Rate 79 Respiratory Rate 16 Blood Pressure 161/90 H Pulse Oximetry 100 Oxygen Delivery Room Air Exam Const: General: cooperative and healthy appearing Resp: Effort & Inspection: normal respiratory effort and able to speak in complete sentences Auscultation: clear to auscultation bilaterally Cardio: Rate: regular rate Rhythm: regular rhythm GI: Inspection: normal to inspection GI Palp: No No hepatosplenomegaly present Auscultation: normal bowel sounds Rectal Exam: deferred Skin: General skin exam: normal color Psych: Appearance: grossly normal Mental Status: mental status grossly normal Assessment and Plan Assessment and plan (1) History of colonic polyps: Code(s): Z86.0100 - Personal history of colon polyps, unspecified Status: Acute Assessment and Plan: The patient is deemed a good candidate for the procedure. Consent signed. Will proceed.
--- NOTE | 2024-10-05 09:50 | S_PTH ---
PATIENT: Alexandria Luis V LOC: [facility]#:[id number] AGE/SX: 69/F ROOM: RE10/05/[address]: Ronnie Darnell MD : [id number] BED: DIS: 10/05/2024 SPEC #: [id number] RECD: 10/05/24 11:47 STATUS: NETO REJenny #: [id number] CANDICE: 10/05/24 09:[address]: Ronnie Darnell DEPT: [facility] Surgical RECD BY: Bernadette Weathers ENTERED: 10/05/24 11:47 SP TYPE: Surgical OTHR DR: Maddy DevineMD Tissues: A - Colon Polypectomy B - Colon Polypectomy Procedures: Hematoxylin and Eosin Stain Gross and Microscopic Level 4
[2024-10-05 09:57] VITALS: BP 124/73; PULSE 71; RESP 19; O2SAT 99
[2024-10-05 10:07] VITALS: BP 147/89; PULSE 65; RESP 16; O2SAT 99
[2024-10-05 10:17] VITALS: BP 153/91; PULSE 68; RESP 16; O2SAT 100
== END 2024-10-05 10:35 | disposition home or self-care (01) ==
PROVIDERS: PCP Internal Medicine; Referring Provider Surgery; Visit Provider Internal Medicine Gastroenterology
PROC: 0DJD8ZZ Inspection of Lower Intestinal Tract, Via Natural or Artificial Opening Endoscopic (ICD-10-PCS; CPT 45378; principal; 2024-10-05 09:30)
DX: Z12.11 Encounter for screening for malignant neoplasm of colon (principal); D12.2 Benign neoplasm of ascending colon; K63.5 Polyp of colon; Q27.33 Arteriovenous malformation of digestive system vessel; I11.0 Hypertensive heart disease with heart failure; I50.30 Unspecified diastolic (congestive) heart failure; E66.9 Obesity, unspecified; Z68.31 Body mass index [BMI] 31.0-31.9, adult; Z79.891 Long term (current) use of opiate analgesic; Z98.890 Other specified postprocedural states; Z98.84 Bariatric surgery status; Z92.3 Personal history of irradiation; Z92.21 Personal history of antineoplastic chemotherapy; Z85.048 Personal history of other malignant neoplasm of rectum, rectosigmoid junction, and anus; Z80.0 Family history of malignant neoplasm of digestive organs; Z80.1 Family history of malignant neoplasm of trachea, bronchus and lung
CPT/HCPCS: 45385; 88305; J2003; J2704; J7120